=== PATIENT | female | born 1985 | race Caucasian/White ===

== ENCOUNTER 2021-04-27 13:13 | Emergency (ER) | payer OTHER ==
[2021-04-27] MEDS ORDERED: TORADOL 10 MG T10 MG PO (14:34)
== END 2021-04-27 14:40 | disposition home or self-care (01) ==
LOC: ER1 13:13
DX: M54.5 Low back pain (principal); Z79.899 Other long term (current) drug therapy
CPT/HCPCS: 81001; 84703; 87086; 96372; 99283; J1885; J2405